=== PATIENT | female | born 1985 | race Two or more races ===

== ENCOUNTER 2016-03-18 18:43 | Inpatient (IN) | payer MEDICARE, MEDICAID ==
--- NOTE | 2016-03-18 18:54 | ED Physician Chart ---
Chief Complaint/HPI - Patient Information Allergies:: Allergies Allergy/AdvReac Type Severity Reaction Status Date / Time No Known Allergies Allergy Verified 03/18/16 18:50 Vitals:: Vital Signs - 8 hr 03/18/16 03/18/16 03/18/16 18:54 19:25 20:30 Temp 98.4 F 98.4 F HR 98 100 110 RR 25 18 18 BP 166/89 172/98 O2 Sat % 88 99 98 03/18/16 21:28 Temp 98.6 F HR 120 RR 18 BP 177/102 O2 Sat % 98 <Charles Thurston - Last Filed: 03/18/16 22:19> - Patient Information Date Seen:: 03/18/16 Time Seen:: 18:40 Chief Complaint:: COUGH AND RESPIRATORY DISTRESS THAT STARTED AT 8 AM History of Present Illness:: This 31 year old female who has Lupus and is on dialysis started with a non- productive cough this about 8 AM. She had subjective fever with no associated chills. This afternoon she became diaphoretic. Pt has tightness in the chest that does not radiate. She rates the severity of the tightness as a 5/10. It is made worse by deep inhalation. NO hemoptysis. <Moe Crenshaw - Last Filed: 03/21/16 14:42> Review of Systems - Review of Systems General/Constitutional: Fever, No chills, Diaphoresis, Loss of appetite Skin: No skin lesions, No rash Head: No headache, No light-headedness Eyes: No loss of vision, No diplopia ENT: No earache, No sore throat Neck: No neck pain, No thyromegaly, No stiffness Cardio Vascular: Chest pain, No palpitations, No edema Pulmonary: Cough, No sputum, Other (no hemoptysis) GI: No nausea, No vomiting, No diarrhea G/U: Other (makes no urine) Material Inspector: No abnormal vaginal bleed Musculoskeletal: No bone or joint pain, No back pain Endocrine: No polyuria, No polydipsia Psychiatric: Anxiety, No suicidal ideation Hematopoietic: No bruising, No lymphadenopathy Allergic/Immuno: No urticaria, No angioedema Neurological: No syncope, No focal symptoms, No weakness, No paresthesia, No seizure, No vertigo <Moe Crenshaw - Last Filed: 03/21/16 14:42> Past Medical History - Past Medical History Obtainable: Yes Psychiatricy History: Depression Medication: Reviewed <Charles Thurston - Last Filed: 03/18/16 22:19> - Past Medical History Past Medical History: Other (chroni renal failure on dialysis., lupus) Social History: Smoker, Alcohol (occational alcohol), No Drug Use Surgical History: other (bilateral hip replacements) <Moe Crenshaw - Last Filed: 03/21/16 14:42> Family Medical History - Family Member Father Living Status: Still Living Hx Family Diabetes: Yes <Moe Crenshaw - Last Filed: 03/21/16 14:42> Physical Exam - Physical Examination Respiratory: No Wheeze/Rhonchi/Rales (BILATERAL RHONCHI AND RALES AT THE BASES) <Charles Thurston - Last Filed: 03/18/16 22:19> - Physical Examination General/Constitutional: Awake, Well-developed, well-nourished, Alert Other Gen/Cons comments:: moderate distress, respiratory Head: Atraumatic Eyes: Lids, conjuctiva normal, PERRL, EOMI Skin: Nl inspection, No rash, No skin lesions, No ecchymosis ENMT: External ears, nose nl, TM canals nl, Nasal exam nl, Lips, teeth, gums nl , Oropharynx nl, Tonsils nl Neck: Nontender, Full ROM w/o pain, No JVD, No nuchal rigidity, No bruit, No mass, No stridor Respiratory: Nl effort/Exclusion, Clear to Auscultation Other Respiratory comments:: occational wheezes. NO rales or ronchi. Cardio Vascular: No murmur, gallop, rubs, NL S1 S2, Carotid/Femoral/Distal pulses equal bilaterally Other Cardio Vascular comments:: mild tachycardia in the 110 range GI: No tenderness/rebounding/guarding, No organomegaly, No hernia, Normal BS's, Nondistended, No mass/bruits, No McBurney tenderness : No CVA tenderness Extremities: normal strength in all extremities Neuro/Psych: Alert/oriented, Normal sensory exam, Normal motor strength, Judgement/insight normal, Mood normal, No focal deficits Misc: Normal back, No paraspinal tenderness <Moe Crenshaw - Last Filed: 03/21/16 14:42> Labs/Radiology/EKG Results - Lab Results Results: Laboratory Tests 03/18/16 03/18/16 03/18/16 20:01 20:01 20:01 WBC 5.6 RBC 3.65 L Hgb 11.1 L Hct 32.6 L MCV 89.2 MCH 30.5 MCHC Differential 34.2 RDW 14.0 Plt Count 210 MPV 9.4 Neutrophils % 68.2 Lymphocytes % 20.7 Monocytes % 9.2 Eosinophils % 1.6 Basophils % 0.3 D-Dimer Sodium 137 Potassium 3.7 Chloride 98 Carbon Dioxide 28.0 Anion Gap 14.7 BUN 32 H Creatinine 7.7 H* Est GFR ( Amer) 7.9 Est GFR (Non-Af Amer) 6.5 BUN/Creatinine Ratio 4.2 Glucose 99 Whole Bld Lactic Acid 1.69 Calcium 10.5 H Total Bilirubin 0.5 AST 13 ALT 10 Alkaline Phosphatase 70 Troponin I B-Natriuretic Peptide Total Protein 7.5 Albumin 3.8 Globulin 3.7 Albumin/Globulin Ratio 1.0 03/18/16 03/18/16 20:01 20:01 WBC RBC Hgb Hct MCV MCH MCHC Differential RDW Plt Count MPV Neutrophils % Lymphocytes % Monocytes % Eosinophils % Basophils % D-Dimer 787 H Sodium Potassium Chloride Carbon Dioxide Anion Gap BUN Creatinine Est GFR ( Amer) Est GFR (Non-Af Amer) BUN/Creatinine Ratio Glucose Whole Bld Lactic Acid Calcium Total Bilirubin AST ALT Alkaline Phosphatase Troponin I 0.03 B-Natriuretic Peptide 1700.0 H Total Protein Albumin Globulin Albumin/Globulin Ratio - Radiology Results Results: CHEST X-RAY = BILATERAL EDEMA NOTED BUT NO EFFUSION <Charles Thurston - Last Filed: 03/18/16 22:19> - Lab Results Results: CXR: NO CARDIOMEGALY. NO PNEUMOTHORAX. NO AREAS OF PULMONARY CONSOLIDATION. NO CHF. <Moe Crenshaw - Last Filed: 03/21/16 14:42> Assessment - Assessment General Assessment: passed on to DR. THURSTON at end of my shift for evaluation of labs and disposition <Moe Crenshaw - Last Filed: 03/21/16 14:42> ED Septic Shock - . Is Septic Shock (SBP<90, OR Lactate>4 mmol\L) present?: No - <6hrs of presentation: Vital Signs: Vital Signs - 8 hr 03/18/16 03/18/16 03/18/16 18:54 19:25 20:30 Temp 98.4 F 98.4 F HR 98 100 110 RR 25 18 18 BP 166/89 172/98 O2 Sat % 88 99 98 03/18/16 21:28 Temp 98.6 F HR 120 RR 18 BP 177/102 O2 Sat % 98 <Charles Thurston - Last Filed: 03/18/16 22:19> - . Is Septic Shock (SBP<90, OR Lactate>4 mmol\L) present?: No <Moe Crenshaw - Last Filed: 03/21/16 14:42> Reassessment (Disposition) - Reassessment Reassessment:: THE PATIENT WAS GIVEN ROCEPHIN AND SOLUMEDROL WITH SOME IMPROVEMENT. HOWEVER SHE COULD NOT MAINTAIN HER OXYGEN WITHOUT O2 NASAL CANULA AT 2 LITER PER MINUTES. Reassessment Condition:: Improved - Diagnosis Diagnosis:: HYPOXEMIA ACUTE BRONCHITIS LUPUS ESRD - Patient Disposition Discharge/Transfer:: Acute Care w/in this hosp Condition at Disposition:: Improved <Charles Thurston - Last Filed: 03/18/16 22:19> ED Discharge Plan <Charles Thurston - Last Filed: 03/18/16 22:19> <oMe Crenshaw - Last Filed: 03/21/16 14:42> - Patient Disposition Admit/Discharge/Transfer: Acute Care w/in this hosp
[2016-03-18] MEDS ORDERED: Albuterol/Ipratropium Neb 3 ML AERS HHN ONE ×2 (19:07→19:21)
[2016-03-18 20:23] LABS: % BASOPHILS 0.3 % (0.0-2.0); % EOSINOPHILS 1.6 % (0.0-5.0); % LYMPHOCYTES 20.7 % (20.0-50.0); % MONOCYTES 9.2 % (2.0-10.0); % NEUTROPHILS 68.2 % (40.0-80.0); HEMATOCRIT 32.6 % (35.0-45.0); HEMOGLOBIN 11.1 gm/dL (11.7-15.5); MEAN CELL VOLUME 89.2 fl (81-100); MEAN CORPUSCULAR HEMOGLOBIN 30.5 pg (27.0-31.0); MEAN CORPUSCULAR HGB CONC 34.2 pg (28.0-36.0); MEAN PLATELET VOLUME 9.4 fl; NEUTROPHILE ABSOLUTE 3.8 Th/cmm (1.8-8.0); PLATELET COUNT 210 Th/cmm (150-400); RED BLOOD COUNT 3.65 Mil/cmm (3.80-5.10); WHITE BLOOD COUNT 5.6 Th/cmm (4.8-10.8)
[2016-03-18 20:36] LABS: ANION GAP 14.7 (7.0-16.0); BILIRUBIN,TOTAL 0.5 mg/dL (0.3-1.0); BUN/CREATININE RATIO 4.2; CALCIUM SERUM 10.5 mg/dL (8.6-10.3); POTASSIUM SERUM 3.7 mEq/L (3.5-5.1)
[2016-03-18 20:43] LABS: CREATININE - SERUM 7.7 mg/dL (0.6-1.2)
--- NOTE | 2016-03-19 04:08 | Admit Criteria Form ---
Admit Criteria Forms - Admit Criteria Diagnosis: PULMONARY DISEASE GRG Clinical Indications for Admission to Inpatient Care ( Place 'X' for any and all applicable criteria): Hospital admission is needed for appropriate care of the patient because of ANY ONE of the following(1): [ ]I. Impending or actual respiratory arrest ( Use Respiratory Failure Criteria for severe respiratory disease and long-term mechanical ventilation patients) (4) [ ]II. Severe airflow or ventilation abnormalities (not responsive to emergency and observation care treatment as appropriate) as indicated by ANY ONE of the following(5)(6)(7)(8) : [ ]a) PCO2 > 42 mm Hg (5.6 kPa) and pH < 7.35 (new) [ ]b) Documented PCO2 increase > 5 mm Hg (0.7 kPa) from disease baseline [ ]c) Airflow measurements[A] < 60% of previous best or predicted ( e.g., PEF <300 L/minute) despite intensive emergent treatment[B] [ ]d) Required respiratory treatments that are performable only in acute inpatient setting [ X]III. Severe respiratory findings (not responsive to emergency and observation care treatment as appropriate) including ANY ONE of the following(5)(8)(9): [X ]a) Respiratory distress as indicated by ALL of the following(5)(10) : [X]i) Patient with ANY ONE of the following: [X ]1) Dyspnea (difficulty breathing) [ ]2) Abnormal breathing pattern (eg, chest retractions) [ ]3) Tachypnea [ ]4) Other evidence of difficulty breathing [X ]ii) Evidence of respiratory compromise indicated by ANY ONE of the following: [X ]1) Hypoxemia [ ]2) Altered mental status [ ]3) Other evidence of respiratory compromise (eg, pulmonary edema on chest x-ray) [ ]b) Stridor [ ]c) Gross hemoptysis(11) [ ]d) Acute cyanosis [ ]IV. High-risk pulmonary infection as indicated by ANY ONE of the following( 19)(20)(21)(22): [ ]a) Temperature less than 95 degrees F(35 degrees C) or greater than 103.1 degrees F(39.5 degrees C) [ ]b) Hemodynamic instability that remains after emergency or observation level care (as appropriate) [ ]c) Immunocompromised patient (eg, AIDS, post transplant, neutropenic) [ ]d) History of severe COPD [ ]e) History of severely symptomatic congestive heart failure [ ]f) Other high-risk comorbidity (eg, poorly controlled diabetes, cirrhosis, chronic renal insufficiency) [ ]g) Hypoxemia (new) [ ]h) Outpatient, observation, or recovery facility therapy has failed, is not appropriate, or is not feasible [ ]V. Severe atelectasis or lung collapse(15)(16) [ ]. Tuberculosis requiring inpatient treatment as indicated by ANY ONE of the following(17)(18): [ ]a) New positive acid-fast bacilli sputum smear [ ]b) Positive acid-fast bacilli smear (under current treatment), with ANY ONE of the following: [ ]i) Unexposed household contacts [ ]ii) Infants or immunosuppressed household contacts [ ]iii) Patient unable or unwilling to avoid exposing others [ ]iv) Severe immunocompromised patient (eg, AIDS, post transplant, neutropenic) [ ]VII. Empyema or lung abscess(13)(14) [ ]VIII. Severe pulmonary arterial hypertension or pulmonary vascular disease requiring inpatient care indicated by ANY ONE of the following(24)(25): [ ]a) Initiation or change of vasodilators (IV, subcutaneous, or inhaled) or other vasoactive medications needed [ ]b) IV anticoagulation needed (eg, immediate anticoagulation necessary, alternatives not appropriate) [ ]c) Arterial or pulmonary artery catheter monitoring needed due to infusion or other treatment [ ]IX. Chronic lung disease with severe deterioration (not responsive to emergency and observation care treatment as appropriate) as indicated by ANY ONE of the following (6)(12): [ ]a) SaO2 5% below baseline in patient with chronic hypoxemia [ ]b) New requirement for supplemental oxygen to keep SaO2 at baseline or acceptable level [ ]c) Required supplemental oxygen performable only in acute inpatient setting [ ]d) Severe airflow or ventilation abnormalities [ ]e) Rapid rate of exacerbation onset [ ]f) Previously mobile patient unable to walk between rooms [ ]g) Inability to eat or sleep due to dyspnea [ ]h) Altered mental status [ ]X. Cystic fibrosis with severe deterioration as indicated by ANY ONE of the following(26)(27): [ ]a) Severe exacerbation that does not respond to intensified home therapy [ ]b) Pneumonia [ ]c) Hemoptysis [ ]d) Atelectasis [ ]e) Pneumothorax [ ]f) Respiratory failure [ ]g) Severe exacerbation with patient unable to perform prescribed treatments at home [ ]XI. Severe right heart failure as indicated by ANY ONE of the following(24) (25): [ ]a) Increasing organ failure (eg, liver congestion with significant and worsening or new elevation of transaminases) [ ]b) Anasarca [ ]c) Angina that requires inpatient care (eg, not treatable in emergency or observation level of care) [ ]d) Respiratory distress [ ]e) Syncope [ ]f) SBP < 90 mm Hg (new) [ ]XII. Injury requiring inpatient care (medical) as indicated by ANY ONE of the following(28): [ ]a) Significant inhalation injury (eg, smoke inhalation, other toxic inhalation) (29)(30)(31) [ ]b) Airway obstruction that remains or is unstable after emergency or observation level care(32) [ ]c) Severe pain requiring acute inpatient management [ ]d) Lung contusion [ ]e) Bronchial tree injury [ ]f) Air or fat emboli(33) [ ]g) Other injury not treatable in emergency or observation level care (eg, hemothorax) (34) [ ]XIII. Pulmonary hemorrhage or significant hemoptysis(11)(35)(36) [ ]XIV. Inpatient palliative care needed[C](37)(38)(39)(40) [ ]XV. Complications of lung transplant (eg, rejection, failure, respiratory infection) (23) [ ]XVI. Pulmonary Disease and ANY ONE of the following: [ ]a) General Admission Criteria [ ]b) Pediatric General Admission Criteria The original [facility] content created by [facility] has been revised. The portions of the content which have been revised are identified through the use of italic text or in bold, and [facility] has neither reviewed nor approved the modified material. All other unmodified content is copyright [facility]. Please see references footnoted in the original [facility] edition 2016 Admit Criteria Met?: Yes
--- NOTE | 2016-03-19 07:35 | Consultation ---
Consult Note - Consult Note Service Date: 03/19/16 Referring Physician: Mine Kelley Consult Note: PHYSICIAN Consultation Note: Date of Admission: 03/18/16 Purpose of Consultation: Bronchitis, pneumonia. Chief Complaint: cough and shortness of breath. History of Present Illness: Patient LUCINA MONTANEZ was admitted to [facility] Telemetry with HYPOXEMIA,ACUTE BRONCHITIS,LUPUS,ESRD. 31 Y F with PMH of lupus, CKD5 on HD by av fistula in left arm developed cough and shortness of breath. She complained of subjective fevers. On initial evaluation, her temperature was 98.4 degree F and WBC Count was 5600. She was hypoxia and required supplemental oxygen. She was started on ceftriaxone and she felt better. Her CXR showed b/l edema. ID consult was called for further antibiotic management. Allergies Allergy/AdvReac Type Severity Reaction Status Date / Time No Known Allergies Allergy Verified 03/18/16 18:50 Vital Signs Temp 98.4 F 03/19/16 06:00 Pulse 110 03/19/16 06:00 Resp 18 03/19/16 06:00 BP 150/92 03/19/16 06:00 Pulse Ox 96 03/19/16 06:00 Home Medication Medication Instructions Recorded Type Calcium Acetate [Phoslo] 667 mg PO DAILY 03/18/16 History Clonazepam 0.5 mg PO TID PRN 03/18/16 History Tramadol HCl [Ultram] 50 mg PO PRN PRN 03/18/16 History Current Medications Generic Name Dose Route Start Last Admin Trade Name Freq PRN Reason Stop Dose Admin Calcium Acetate 667 mg 03/19/16 09:00 Phoslo PO 05/18/16 08:59 DAILY TANK Clonazepam 0.25 mg 03/19/16 01:21 Klonopin PO 05/18/16 08:59 TID PRN Agitation Protocol Ceftriaxone Sodium 1 gm/ 50 mls @ 100 mls/hr 03/19/16 21:00 Sodium Chloride IV 05/18/16 20:59 Q24HR TANK Pneumococcal Polyvalent Vaccine 0.5 ml 03/19/16 09:00 Pneumovax IM 03/19/16 09:01 .ONCE ONE Tramadol HCl 50 mg 03/19/16 00:23 Ultram PO 05/18/16 00:22 PRN PRN PAIN Review of Systems: A 12 point ROS was reviewed with the pertinent positive and negatives noted in the HPI. Past Medical History Hx Renal Disease Yes: ON HEMODIALYSIS Other Emotional/Behavior HAS HX OF BIPOLAR DISORDER Disorder Social History Smoking Status Smoker, status unknown Family Medical History Nonsignificant. Physical Exam: General: No Acute Distress HEENT: EOMI Bilaterally, PERRLA Bilaterally, Head is normocephalic, atraumatic on inspection. Neck: Supple, no JVD, no use of accessory neck muscle. Cardio: +S1/S2 Auscultated, RRR, no murmurs/rubs/gallops noted Respiratory: Clear to Auscultate Bilaterally Abdominal: Soft, Nondistended, Nontender to palpation x 4 quadrants Extremities: No Edema noted in the lower extremities Neurological: Alert and Oriented x3, Cranial Nerves II-XII intact bilaterally, Gait Steady, No Focal Deficits noted. Assessment/Plan: 1. Dyspnea with cough, improving on current treatment. Bronchitis. 2. CHF. 3. CKD 5 on HD. 4. SLE. Recommendations: Will continue rocephin, follow up CXR report. Follow up blood culture report. Signed, Alonso Thomas M.D. 03/19/[id number]
[2016-03-19 07:45] LABS: % BASOPHILS 0.2 % (0.0-2.0); % EOSINOPHILS 0.3 % (0.0-5.0); % LYMPHOCYTES 14.1 % (20.0-50.0); % MONOCYTES 1.7 % (2.0-10.0); % NEUTROPHILS 83.7 % (40.0-80.0); HEMOGLOBIN 9.5 gm/dL (11.7-15.5); MEAN CELL VOLUME 89.8 fl (81-100); MEAN CORPUSCULAR HEMOGLOBIN 30.1 pg (27.0-31.0); MEAN CORPUSCULAR HGB CONC 33.5 pg (28.0-36.0); MEAN PLATELET VOLUME 9.5 fl; NEUTROPHILE ABSOLUTE 2.7 Th/cmm (1.8-8.0); PLATELET COUNT 199 Th/cmm (150-400); RED BLOOD COUNT 3.17 Mil/cmm (3.80-5.10); RED CELL DISTRIBUTION WIDTH 13.6 % (11.5-20.0)
[2016-03-19 07:59] LABS: ANION GAP 13.3 (7.0-16.0); BUN/CREATININE RATIO 4.6; CARBON DIOXIDE 27.6 mEq/L (21.0-31.0); POTASSIUM SERUM 4.9 mEq/L (3.5-5.1)
[2016-03-19 08:08] LABS: HEMATOCRIT 28.4 % (35.0-45.0); WHITE BLOOD COUNT 3.3 Th/cmm (4.8-10.8)
[2016-03-19 08:45] LABS: CREATININE - SERUM 8.9 mg/dL (0.6-1.2)
[2016-03-19] MEDS ORDERED: Pneumococcal Vaccine 0.5 mL Vial IM ONE (09:00)
--- NOTE | 2016-03-19 10:40 | Diagnostic Imaging Report ---
Portable chest x-ray History: Shortness of breath Allowing for portable technique the heart size is normal. No focal pulmonary parenchymal processes. No hilar or mediastinal abnormalities. Impression: No acute abnormalities.
[2016-03-19] MEDS ORDERED: Epoetin Alfa 20000 Units/mL Vial SUBQ SCH (12:45)
[2016-03-19] MEDS: cefTRIAXone 1 GM in Sodium Chloride 0.9% 100 ML IV SCH (22:30)
--- NOTE | 2016-03-20 00:32 | History & Physical ---
HISTORY OF PRESENT ILLNESS: This is a 31-year-old female who came with acute shortness of breath and cough. The patient is a 31-year-old female patient known to have history of lupus, history of ESRD, on hemodialysis. The patient had fistula on her left arm, developed acute shortness of breath, was complaining of fever, but her temperature when taken was 98. The patient's was white count was ____ 5600. The patient was hypoxic in the Emergency Room, was given supplemental oxygen. Chest x-ray showed bilateral edema. The patient also had congestive heart failure pattern. The patient was admitted. ALLERGIES: No known allergies. MEDICATIONS: Included calcium acetate, clonazepam or Klonopin, and tramadol. REVIEW OF SYSTEMS: Essentially, as noted above shortness of breath. Everything else was negative. The patient is known to have history of ESRD, on dialysis. The patient is known to have history of CHF and history of bipolar disorder. SOCIAL HISTORY: He is a smoker, current status not known. PHYSICAL EXAMINATION: GENERAL: The patient is alert and oriented, not in acute distress. VITAL SIGNS: Stable. HEAD: Normal. ENT: Normal. NECK: Supple, nontender. LUNGS: Clear. CARDIOVASCULAR SYSTEM: S1 and S2. ABDOMEN: Soft. Bowel sounds are heard. CENTRAL NERVOUS SYSTEM: Grossly normal. Left arm fistula was noted. DIAGNOSES: 1. Dyspnea with cough and bilateral bronchitis. 2. Congestive heart failure. 3. End-stage renal disease, on hemodialysis. 4. History of systemic lupus erythematosus. PLAN: The patient is only given antibiotics and we will have Dr. Thomas follow the patient and also have Dr. Boyer do the dialysis and I will follow the patient. JOB# [id number]
--- NOTE | 2016-03-20 03:23 | Consultation ---
ATTENDING PHYSICIAN: Demetrius Kelley M.D. REASON FOR CONSULTATION: Electrolyte imbalance and fluid management. HISTORY OF PRESENT ILLNESS: This is a 31-year-old female with past medical history of end-stage renal disease on hemodialysis, who came in because of persistently cough. A few hours prior to admission, the patient suddenly developed cough. She described this as dry without any production of phlegm. However, she felt like there is phlegm stuck in her throat. She coughed persistently, which eventually affected her breathing. She then proceeded to the Emergency Room. Chest x-ray revealed no acute disease. White count was 5.6. She had no chest pain. She did admit to having some form of low-grade fever. She denied any history of asthma, postnasal drip and GERD. PAST MEDICAL HISTORY: 1. End-stage renal disease, on hemodialysis. 2. SLE, which was diagnosed when she was a teenager and has been stable for many years. 3. Anemia of chronic kidney disease. PAST SURGICAL HISTORY: Status post placement of left AV fistula. CURRENT MEDICATIONS: She is currently on albuterol/ipratropium, PhosLo, Rocephin, clonazepam, methylprednisolone, tramadol. ALLERGIES: No known drug allergies. SOCIAL HISTORY: Denied any history of alcohol or tobacco use. She is currently on disability. FAMILY HISTORY: Noncontributory to present illness. REVIEW OF SYSTEMS: CONSTITUTIONAL: Denied any weakness. Appetite had been good. She did have some low-grade fever. HEENT: No mention of headaches, no dizziness. Vision and hearing acuity remains within acceptable limits. CARDIORESPIRATORY: No history of chest pain, palpitations, diaphoresis. However, she does have dry cough associated with some shortness of breath. GASTROINTESTINAL: No nausea and vomiting, abdominal pain or cramping, hematemesis, melena, hematochezia. No diarrhea. ENDOCRINE: No history of diabetes or thyroid abnormalities, no dyslipidemia. MUSCULOSKELETAL: She does have a history of lupus, however, no arthralgias at the present time. HEMATOLOGIC: She has anemia of chronic kidney disease. GENITOURINARY: History of kidney failure, on hemodialysis, due to her lupus. Still urinates, but very rarely. No dysuria, no hematuria. NEUROPSYCH: No syncopal episode nor seizure activity. No neuropathy. PHYSICAL EXAMINATION: GENERAL: The patient is alert, verbal, still has problem with her cough. VITAL SIGNS: Her blood pressure is 157/104, pulse 107, temperature 98.5 degrees. SKIN: Good turgor, warm, no rash, no jaundice appreciated. HEENT: Head normocephalic, atraumatic. Eyes, extraocular muscles intact. Pupils equal, round, reactive to light and accommodation. Anicteric sclerae. Pale conjunctivae. Nose, midline nasal septum. Mouth, moist mucosa with adequate dentition. NECK: Supple. No adenopathy. No thyromegaly. No bruits. Trachea palpated in the midline. CHEST AND CVS: S1, S2. No rub, murmur nor gallop appreciated. Point of maximal impulse fifth intercostal space, left midclavicular line. No abdominal or femoral bruits appreciated. LUNGS: Equal expansion. No use of accessory muscles. No supraclavicular retractions. Decreased breath sounds, a few rhonchi, but no rales nor wheezes appreciated. BREASTS: Symmetrical, without any discharge. ABDOMEN: Flat, soft. Positive for bowel sounds. No bruits either diastolic or systolic. RECTAL: The patient refused. GENITOURINARY: Normal appearing female genitalia. MUSCULOSKELETAL: No effusions present in her joints, with adequate range of motion. EXTREMITIES: No evidence of edema, cyanosis nor clubbing with palpable femoral, popliteal and dorsalis pedis pulses. NEUROLOGIC: The patient is alert, verbal. Motor is 5/5. Cranial nerves 2-12 intact. Sensory intact. LABORATORY DATA: Sodium 134, potassium 4.9, chloride 98, bicarbonate 27, BUN 41, creatinine 8.9, glucose 154, calcium 10, albumin 3.8. White count 3.3, hemoglobin 9.5, hematocrit 28.4, polys 83%, platelets 199. BNP 1700. IMPRESSION: 1. End-stage renal disease, on hemodialysis. 2. Dry cough, possibly due to acute bronchitis, however, also need to consider bronchospasm as well as bronchiectasis. 3. Systemic lupus erythematosus, which has been stable. 4. Anemia of chronic kidney disease. 5. Moderate malnutrition. 6. Elevated blood pressure. 7. Elevated BNP due to kidney failure. PLAN: 1. Hemodialysis. 2. Continue with steroids. 3. Consider CT scan of the chest. 4. Continue antibiotics. 5. Start the patient on Lopressor because of tachycardia and hypertension. Thank you, Dr. Kelley for this consult. We will follow the patient closely with you. JOB# [id number]
[2016-03-20 15:24] VITALS: BP 138/84
--- NOTE | 2016-03-20 18:25 | General Progress Note ---
Subjective - Review of Systems Service Date: 03/20/16 Objective - Results Result Diagrams: 03/19/16 07:19 03/19/16 07:19 Recent Labs: Laboratory Last Values WBC 3.3 Th/cmm (4.8-10.8) L D 03/19/16 07:19 RBC 3.17 Mil/cmm (3.80-5.10) L 03/19/16 07:19 Hgb 9.5 gm/dL (11.7-15.5) L 03/19/16 07:19 Hct 28.4 % (35.0-45.0) L D 03/19/16 07:19 MCV 89.8 fl (81-100) 03/19/16 07:19 MCH 30.1 pg (27.0-31.0) 03/19/16 07:19 MCHC Differential 33.5 pg (28.0-36.0) 03/19/16 07:19 RDW 13.6 % (11.5-20.0) 03/19/16 07:19 Plt Count 199 Th/cmm (150-400) 03/19/16 07:19 MPV 9.5 fl 03/19/16 07:19 Neutrophils % 83.7 % (40.0-80.0) H 03/19/16 07:19 Lymphocytes % 14.1 % (20.0-50.0) L 03/19/16 07:19 Monocytes % 1.7 % (2.0-10.0) L 03/19/16 07:19 Eosinophils % 0.3 % (0.0-5.0) 03/19/16 07:19 Basophils % 0.2 % (0.0-2.0) 03/19/16 07:19 D-Dimer 787 ng/mL (100-400) H 03/18/16 20:01 Sodium 134 mEq/L (136-145) L 03/19/16 07:19 Potassium 4.9 mEq/L (3.5-5.1) 03/19/16 07:19 Chloride 98 mEq/L (98-107) 03/19/16 07:19 Carbon Dioxide 27.6 mEq/L (21.0-31.0) 03/19/16 07:19 Anion Gap 13.3 (7.0-16.0) 03/19/16 07:19 BUN 41 mg/dL (7-25) H 03/19/16 07:19 Creatinine 8.9 mg/dL (0.6-1.2) H* 03/19/16 07:19 Est GFR ( Amer) 6.7 ml/min (>90) 03/19/16 07:19 Est GFR (Non-Af Amer) 5.5 ml/min 03/19/16 07:19 BUN/Creatinine Ratio 4.6 03/19/16 07:19 Glucose 154 mg/dL (70-105) H 03/19/16 07:19 Whole Bld Lactic Acid 1.69 mmol/L (0.60-2.00) 03/18/16 20:01 Calcium 10.0 mg/dL (8.6-10.3) 03/19/16 07:19 Total Bilirubin 0.5 mg/dL (0.3-1.0) 03/18/16 20:01 AST 13 U/L (13-39) 03/18/16 20:01 ALT 10 U/L (7-52) 03/18/16 20:01 Alkaline Phosphatase 70 U/L (34-104) 03/18/16 20:01 Troponin I 0.03 ng/mL (0.01-0.05) 03/18/16 20:01 B-Natriuretic Peptide 1700.0 pg/mL (5.0-100.0) H 03/18/16 20:01 Total Protein 7.5 gm/dL (6.0-8.3) 03/18/16 20:01 Albumin 3.8 gm/dL (3.7-5.3) 03/18/16 20:01 Globulin 3.7 gm/dL 03/18/16 20:01 Albumin/Globulin Ratio 1.0 (1.0-1.8) 03/18/16 20:01 - Physical Exam Vitals and I&O: Vital Signs Temp 98.2 F 03/20/16 15:59 Pulse 94 03/20/16 15:59 Resp 18 03/20/16 16:00 BP 147/95 03/20/16 15:59 Pulse Ox 97 03/20/16 15:59 Intake & Output 02/04/17 02/05/17 02/05/17 18:59 06:59 18:59 Intake Total 800 750 800 Balance 800 750 800 Intake: Oral 800 750 800 Other: # Voids 3 3 0 # Bowel Movements 1 1 1 Stool Characteristics Soft Soft Brown Brown Active Medications: Current Medications Calcium Acetate (Phoslo) 667 mg PO DAILY [facility] Stop: 05/18/16 08:59 Last Admin: 03/20/16 08:27 Dose: 667 mg Clonazepam (Klonopin) 0.25 mg PO TID PRN; Protocol PRN Reason: Agitation Stop: 05/18/16 08:59 Last Admin: 03/20/16 04:13 Dose: 0.25 mg Epoetin Gabe (Epogen) 10,000 units SUBQ TuThSa [facility] Stop: 05/18/16 12:44 Last Admin: 03/19/16 16:54 Dose: 10,000 units Ceftriaxone Sodium 1 gm/ (Sodium Chloride) 100 mls @ 100 mls/hr IV Q24HR [facility] Stop: 05/18/16 20:59 Last Admin: 03/19/16 22:30 Dose: 100 mls/hr Metoprolol Tartrate (Lopressor) 25 mg PO DAILY [facility] Stop: 05/18/16 12:29 Last Admin: 03/20/16 08:27 Dose: 25 mg Tramadol HCl (Ultram) 50 mg PO PRN PRN PRN Reason: PAIN Stop: 05/18/16 00:22 Assessment/Plan - Problem List Patient Problems: All Active Problems SEVERE DYSPNEA WITH COUGH (Acute)
[2016-03-20] MEDS: cefTRIAXone 1 GM in Sodium Chloride 0.9% 100 ML IV SCH (20:19)
[2016-03-21] MEDS ORDERED: LURASIDONE HCL 20 MG PO SCH (09:00)
--- NOTE | 2016-03-21 09:02 | General Progress Note ---
Objective - Results Result Diagrams: 03/19/16 07:19 03/19/16 07:19 Recent Labs: Laboratory Last Values WBC 3.3 Th/cmm (4.8-10.8) L D 03/19/16 07:19 RBC 3.17 Mil/cmm (3.80-5.10) L 03/19/16 07:19 Hgb 9.5 gm/dL (11.7-15.5) L 03/19/16 07:19 Hct 28.4 % (35.0-45.0) L D 03/19/16 07:19 MCV 89.8 fl (81-100) 03/19/16 07:19 MCH 30.1 pg (27.0-31.0) 03/19/16 07:19 MCHC Differential 33.5 pg (28.0-36.0) 03/19/16 07:19 RDW 13.6 % (11.5-20.0) 03/19/16 07:19 Plt Count 199 Th/cmm (150-400) 03/19/16 07:19 MPV 9.5 fl 03/19/16 07:19 Neutrophils % 83.7 % (40.0-80.0) H 03/19/16 07:19 Lymphocytes % 14.1 % (20.0-50.0) L 03/19/16 07:19 Monocytes % 1.7 % (2.0-10.0) L 03/19/16 07:19 Eosinophils % 0.3 % (0.0-5.0) 03/19/16 07:19 Basophils % 0.2 % (0.0-2.0) 03/19/16 07:19 D-Dimer 787 ng/mL (100-400) H 03/18/16 20:01 Sodium 134 mEq/L (136-145) L 03/19/16 07:19 Potassium 4.9 mEq/L (3.5-5.1) 03/19/16 07:19 Chloride 98 mEq/L (98-107) 03/19/16 07:19 Carbon Dioxide 27.6 mEq/L (21.0-31.0) 03/19/16 07:19 Anion Gap 13.3 (7.0-16.0) 03/19/16 07:19 BUN 41 mg/dL (7-25) H 03/19/16 07:19 Creatinine 8.9 mg/dL (0.6-1.2) H* 03/19/16 07:19 Est GFR ( Amer) 6.7 ml/min (>90) 03/19/16 07:19 Est GFR (Non-Af Amer) 5.5 ml/min 03/19/16 07:19 BUN/Creatinine Ratio 4.6 03/19/16 07:19 Glucose 154 mg/dL (70-105) H 03/19/16 07:19 Whole Bld Lactic Acid 1.69 mmol/L (0.60-2.00) 03/18/16 20:01 Calcium 10.0 mg/dL (8.6-10.3) 03/19/16 07:19 Total Bilirubin 0.5 mg/dL (0.3-1.0) 03/18/16 20:01 AST 13 U/L (13-39) 03/18/16 20:01 ALT 10 U/L (7-52) 03/18/16 20:01 Alkaline Phosphatase 70 U/L (34-104) 03/18/16 20:01 Troponin I 0.03 ng/mL (0.01-0.05) 03/18/16 20:01 B-Natriuretic Peptide 1700.0 pg/mL (5.0-100.0) H 03/18/16 20:01 Total Protein 7.5 gm/dL (6.0-8.3) 03/18/16 20:01 Albumin 3.8 gm/dL (3.7-5.3) 03/18/16 20:01 Globulin 3.7 gm/dL 03/18/16 20:01 Albumin/Globulin Ratio 1.0 (1.0-1.8) 03/18/16 20:01 - Physical Exam Vitals and I&O: Vital Signs Temp 98.7 F 03/21/16 04:00 Pulse 91 03/21/16 04:00 Resp 18 03/21/16 04:00 BP 155/94 03/21/16 04:00 Pulse Ox 100 03/21/16 04:00 Intake & Output 03/20/16 03/21/16 03/21/16 18:59 06:59 18:59 Intake Total 800 500 Balance 800 500 Intake: Intake, IV Amount 100 cefTRIAXone 1 gm In 100 Sodium Chloride 0.9% 100 ml @ 100 mls/hr IV Q24HR [facility] Rx#:[id number] Oral 800 400 Other: # Voids 0 1 # Bowel Movements 1 Stool Characteristics Soft Brown Active Medications: Current Medications Calcium Acetate (Phoslo) 667 mg PO DAILY [facility] Stop: 05/18/16 08:59 Last Admin: 03/20/16 08:27 Dose: 667 mg Clonazepam (Klonopin) 0.25 mg PO TID PRN; Protocol PRN Reason: Agitation Stop: 05/18/16 08:59 Last Admin: 03/20/16 04:13 Dose: 0.25 mg Divalproex Sodium (Depakote Dr) 500 mg PO BID [facility] PRN Reason: Protocol Stop: 05/20/16 08:59 Epoetin Gabe (Epogen) 10,000 units SUBQ TuTa [facility] Stop: 05/18/16 12:44 Last Admin: 03/19/16 16:54 Dose: 10,000 units Ceftriaxone Sodium 1 gm/ (Sodium Chloride) 100 mls @ 100 mls/hr IV Q24HR [facility] Stop: 05/18/16 20:59 Last Infusion: 03/20/16 21:19 Dose: Infused Metoprolol Tartrate (Lopressor) 25 mg PO DAILY [facility] Stop: 05/18/16 12:29 Last Admin: 03/20/16 08:27 Dose: 25 mg Miscellaneous (Lurasidone Hcl [Latuda]) 20 mg PO DAILY [facility] Stop: 05/20/16 08:59 Tramadol HCl (Ultram) 50 mg PO PRN PRN PRN Reason: PAIN Stop: 05/18/16 00:22 Assessment/Plan - Problem List Patient Problems: All Active Problems SEVERE DYSPNEA WITH COUGH (Acute)
[2016-03-21] MEDS ORDERED: LATUDA 20 MG PO SCH (13:00)
--- NOTE | 2016-03-21 14:03 | Infectious Disease Prog Note ---
Infectious Disease Subjective - Review of Systems Service Date: 03/21/16 Subjective: There is no fever. Infectious Disease Objective - Results Result Diagrams: 03/19/16 07:19 03/19/16 07:19 Recent Labs: Laboratory Last Values WBC 3.3 Th/cmm (4.8-10.8) L D 03/19/16 07:19 RBC 3.17 Mil/cmm (3.80-5.10) L 03/19/16 07:19 Hgb 9.5 gm/dL (11.7-15.5) L 03/19/16 07:19 Hct 28.4 % (35.0-45.0) L D 03/19/16 07:19 MCV 89.8 fl (81-100) 03/19/16 07:19 MCH 30.1 pg (27.0-31.0) 03/19/16 07:19 MCHC Differential 33.5 pg (28.0-36.0) 03/19/16 07:19 RDW 13.6 % (11.5-20.0) 03/19/16 07:19 Plt Count 199 Th/cmm (150-400) 03/19/16 07:19 MPV 9.5 fl 03/19/16 07:19 Neutrophils % 83.7 % (40.0-80.0) H 03/19/16 07:19 Lymphocytes % 14.1 % (20.0-50.0) L 03/19/16 07:19 Monocytes % 1.7 % (2.0-10.0) L 03/19/16 07:19 Eosinophils % 0.3 % (0.0-5.0) 03/19/16 07:19 Basophils % 0.2 % (0.0-2.0) 03/19/16 07:19 D-Dimer 787 ng/mL (100-400) H 03/18/16 20:01 Sodium 134 mEq/L (136-145) L 03/19/16 07:19 Potassium 4.9 mEq/L (3.5-5.1) 03/19/16 07:19 Chloride 98 mEq/L (98-107) 03/19/16 07:19 Carbon Dioxide 27.6 mEq/L (21.0-31.0) 03/19/16 07:19 Anion Gap 13.3 (7.0-16.0) 03/19/16 07:19 BUN 41 mg/dL (7-25) H 03/19/16 07:19 Creatinine 8.9 mg/dL (0.6-1.2) H* 03/19/16 07:19 Est GFR ( Amer) 6.7 ml/min (>90) 03/19/16 07:19 Est GFR (Non-Af Amer) 5.5 ml/min 03/19/16 07:19 BUN/Creatinine Ratio 4.6 03/19/16 07:19 Glucose 154 mg/dL (70-105) H 03/19/16 07:19 Whole Bld Lactic Acid 1.69 mmol/L (0.60-2.00) 03/18/16 20:01 Calcium 10.0 mg/dL (8.6-10.3) 03/19/16 07:19 Total Bilirubin 0.5 mg/dL (0.3-1.0) 03/18/16 20:01 AST 13 U/L (13-39) 03/18/16 20:01 ALT 10 U/L (7-52) 03/18/16 20:01 Alkaline Phosphatase 70 U/L (34-104) 03/18/16 20:01 Troponin I 0.03 ng/mL (0.01-0.05) 03/18/16 20:01 B-Natriuretic Peptide 1700.0 pg/mL (5.0-100.0) H 03/18/16 20:01 Total Protein 7.5 gm/dL (6.0-8.3) 03/18/16 20:01 Albumin 3.8 gm/dL (3.7-5.3) 03/18/16 20:01 Globulin 3.7 gm/dL 03/18/16 20:01 Albumin/Globulin Ratio 1.0 (1.0-1.8) 03/18/16 20:01 - Physical Exam Vitals and I&O: Vital Signs Temp 98.6 F 03/21/16 08:00 Pulse 93 03/21/16 10:11 Resp 18 03/21/16 08:00 BP 126/85 03/21/16 10:11 Pulse Ox 98 03/21/16 08:00 Intake & Output 03/20/16 03/21/1603/21/17 18:59 06:59 18:59 Intake Total 800 500 400 Balance 800 500 400 Intake: Intake, IV Amount 100 cefTRIAXone 1 gm In 100 Sodium Chloride 0.9% 100 ml @ 100 mls/hr IV Q24HR [facility] Rx#:[id number] Oral 800 400 400 Other: # Voids 0 1 # Bowel Movements 1 Stool Characteristics Soft Brown Active Medications: Current Medications Calcium Acetate (Phoslo) 667 mg PO DAILY [facility] Stop: 05/18/16 08:59 Last Admin: 03/21/16 10:11 Dose: 667 mg Clonazepam (Klonopin) 0.25 mg PO TID PRN; Protocol PRN Reason: Agitation Stop: 05/18/16 08:59 Last Admin: 03/20/16 04:13 Dose: 0.25 mg Divalproex Sodium (Depakote Dr) 500 mg PO BID [facility] PRN Reason: Protocol Stop: 05/20/16 08:59 Last Admin: 03/21/16 10:12 Dose: 500 mg Epoetin Gabe (Epogen) 10,000 units SUBQ TuTa [facility] Stop: 05/18/16 12:44 Last Admin: 03/19/16 16:54 Dose: 10,000 units Ceftriaxone Sodium 1 gm/ (Sodium Chloride) 100 mls @ 100 mls/hr IV Q24HR [facility] Stop: 05/18/16 20:59 Last Infusion: 03/20/16 21:19 Dose: Infused Metoprolol Tartrate (Lopressor) 25 mg PO DAILY [facility] Stop: 05/18/16 12:29 Last Admin: 03/21/16 10:11 Dose: 25 mg Patient Own Med- (Latuda 20mg Tablet) 1 PO DAILY [facility] Stop: 05/20/16 12:59 Last Admin: 03/21/16 13:11 Dose: 1 Tramadol HCl (Ultram) 50 mg PO PRN PRN PRN Reason: PAIN Stop: 05/18/16 00:22 General: no acute distress, well developed, well nourished HEENT: atraumatic, normocephalic, PERRLA Neck: supple, no thyromegaly Cardiovascular: S1S2, no regular Lungs: clear to auscultation bilaterally, clear to percussion Abdomen: soft, no tender, no distended Extremities: no cyanosis, no clubbing, no edema Neurological: awake, alert, oriented Skin: intact Infectious Disease Assmt/Plan - Problem List Patient Problems: All Active Problems SEVERE DYSPNEA WITH COUGH (Acute) - Assessment Assessment: 1. Bronchitis. 2. Lupus. 3. CKD 5 on HD. - Plan Plan: May change rocephin to keflex 250 mg po daily for 6 days.
--- NOTE | 2016-03-21 16:07 | Consultation ---
AGE: 31. SEX: Female. PHYSICIAN: Dr. Kelley. EXPELLER WORKER: Dr. Ingram. REASON FOR THE CONSULT: "I'm bipolar." HISTORY OF PRESENT ILLNESS: The patient is a 31-year-old female with history of bipolar disorder. The patient said that she moved recently to the [facility]. The patient has been anxious and has been depressed. The patient added that she has been taking Latuda and she has not been able to get that since she is here. She has been also having difficulty with her mood at times and has been having mood swings. PAST PSYCHIATRIC HISTORY: The patient has history of bipolar and has been taking Latuda. PAST MEDICAL HISTORY: The patient denies. SOCIAL HISTORY: The patient is single, never and has no children. The patient denies any alcohol or street drug use at this time. She moved recently to [facility]. MENTAL STATUS EXAM: The patient appears her stated age. Anxious. Cooperative. Mood not depressed nor elated. Thought processes are mainly goal directed. The patient denies auditory or visual hallucinations or delusions. The patient denies any thoughts of suicide or homicide. The patient is alert and oriented to time, place, person, and situation. Intact immediate, recent and remote memories. Fair insight. Fair judgment. ASSESSMENT: PRIMARY DIAGNOSIS: Bipolar disorder, mixed type. TREATMENT PLAN: We will restart the patient on Latuda. We will start individual as well as milieu psychotherapy. We will monitor psychotropic medications. Thanks to Dr. Kelley and will follow up with you. JOB# [id number]
[2016-03-22 12:21] LABS: HEP B CORE IGM Negative (Negative); HEP C ANTIBODY <0.1 s/co ratio (0.0-0.9)
--- NOTE | 2016-03-28 20:37 | Discharge Summary ---
HOSPITAL COURSE: The patient was admitted from home through the Emergency Room with chief complaint of shortness of breath. From ER, x-ray was done and found that the patient was negative for pneumonia; however, the patient has a pattern consistent with CHF. The patient was admitted to Med/Surg Floor with diagnosis of bronchitis, CHF and end-stage renal disease dependent on dialysis and also history of systemic lupus erythematosus. The patient was discharged back to home with instruction to follow up with her primary care provider. DISCHARGE DIAGNOSES: 1. Bronchitis. 2. Congestive heart failure. 3. End-stage renal disease with hemodialysis. 4. Systemic lupus erythematosus. JOB# [id number]
== END 2016-03-21 18:15 | disposition home or self-care (01) | DRG 682 ==
LOC: ER 18:43 → TELE 23:00
PROVIDERS: ADMIT Internal Medicine; ATTEND Internal Medicine
PROC: 5A1D00Z (ICD-10-PCS; principal; 2016-03-19)
DX: I12.0 Hypertensive chronic kidney disease with stage 5 chronic kidney disease or end stage renal disease (principal); N18.6 End stage renal disease; I50.9 Heart failure, unspecified; E44.0 Moderate protein-calorie malnutrition; M32.9 Systemic lupus erythematosus, unspecified; F31.89 Other bipolar disorder; J20.9 Acute bronchitis, unspecified; R09.02 Hypoxemia; D63.1 Anemia in chronic kidney disease; Z96.643 Presence of artificial hip joint, bilateral; Z83.3 Family history of diabetes mellitus; Z99.2 Dependence on renal dialysis; Z68.20 Body mass index [BMI] 20.0-20.9, adult
CPT/HCPCS: 36415-UA; 71010-TC; 80048-TC; 80053-TC; 80074-90; 83605; 83880-TC; 84484-TC; 85025-TC; 85379-TC; 90732; 90937; 93005; J0696; J0885; J2001; J2930; J7030; Z7610

== ENCOUNTER 2017-11-09 19:10 | Emergency (ER) | payer OTHER, MEDICAID ==
--- NOTE | 2017-11-09 19:28 | ED Physician Chart ---
ED Chief Complaint/HPI - Patient Information Date Seen:: 11/09/17 Time Seen:: 19:15 Chief Complaint:: vomiting and skin redness History of Present Illness:: Patient took one plaquinil for the first time last night and took another one this morning. She vomited and had mild erythema of the skin this morning. No throat swelling or difficulty breathing. Allergies:: Allergies Allergy/AdvReac Type Severity Reaction Status Date / Time No Known Allergies Allergy Verified 03/18/16 18:50 Historian:: Patient Review:: Nurse's Note Reviewed ED Review of Systems - Review of Systems General/Constitutional: No fever, No chills Skin: No skin lesions, Other (skin redness) Head: No headache Eyes: No loss of vision ENT: No earache Neck: No neck pain, No swelling Cardio Vascular: No chest pain Pulmonary: No SOB GI: Vomiting G/U: No dysuria Musculoskeletal: No bone or joint pain, No back pain, No muscle pain Endocrine: No polyuria, No polydipsia Psychiatric: No prior psych history ED Past Medical History - Past Medical History Past Medical History: Other (lupus; renal failure and on dialysis for 7 years Monday) Family History: HTN Social History: Non Smoker, No Alcohol Surgical History: other (bilateral hip replacements; dialysis shunt) Psychiatricy History: None Medication: Reviewed Family Medical History - Family Member Father History Unknown: Yes Living Status: Still Living Hx Family Diabetes: Yes ED Physical Exam - Physical Examination General/Constitutional: Awake, Well-developed, well-nourished, Alert, No distress, GCS 15, Non-toxic appearing, Ambulatory Head: Atraumatic Eyes: Lids, conjuctiva normal, PERRL, EOMI Skin: Well hydrated, No lymphadenopathy Other Skin comments:: Mild erythema of skin ENMT: External ears, nose nl, Nasal exam nl, Lips, teeth, gums nl, Oropharynx nl Other ENMT comments:: no throat swelling Neck: Nontender, Full ROM w/o pain, No JVD, No nuchal rigidity, No bruit, No mass, No stridor Respiratory: Nl effort/Exclusion, Clear to Auscultation, No Wheeze/Rhonchi/Rales Cardio Vascular: RRR, No murmur, gallop, rubs, NL S1 S2 GI: No tenderness/rebounding/guarding, No organomegaly, No hernia, Normal BS's, Nondistended, No mass/bruits, No McBurney tenderness : No CVA tenderness Extremities: No tenderness or effusion, Full ROM, normal strength in all extremities, No edema, Normal digits & nails Neuro/Psych: Alert/oriented, DTR's symmetric, Normal sensory exam, Normal motor strength, Judgement/insight normal, Mood normal, Normal gait, No focal deficits Misc: Normal back, No paraspinal tenderness ED Labs/Radiology/EKG Results - Lab Results Results: Laboratory Results - last 24 hr 11/09/17 11/09/17 19:50 19:50 WBC 8.9 RBC 3.44 L Hgb 10.8 L Hct 31.9 L MCV 92.7 MCH 31.5 H MCHC Differential 33.9 RDW 15.8 Plt Count 445 H MPV 7.2 Neutrophils % 71.3 Lymphocytes % 21.7 Monocytes % 6.0 Eosinophils % 0.5 Basophils % 0.5 Sodium 130 L Potassium 4.9 Chloride 88 L Carbon Dioxide 27.4 Anion Gap 19.5 H BUN 82 H* Creatinine 6.5 H* Est GFR ( Amer) 9.5 Est GFR (Non-Af Amer) 7.9 BUN/Creatinine Ratio 12.6 Glucose 105 Calcium 10.3 ED Reassessment (Disposition) - Reassessment Reassessment:: At 2020 patient states her pruritus is starting to subside. Reassessment Condition:: Improved - Diagnosis Diagnosis:: Allergic reaction; renal failure on dialysis - Aftercare/Follow up Instructions Aftercare/Follow-Up Instructions:: Refer to Discharge Instructions Medication Prescribed:: Atarax 10 mg #12 to take one 4 times a day as necessary for redness or itching - Patient Disposition Discharge/Transfer:: Home Condition at Disposition:: Stable, Improved
[2017-11-09 20:10] LABS: ANION GAP 19.5 (7.0-16.0); CALCIUM SERUM 10.3 mg/dL (8.6-10.3); CARBON DIOXIDE 27.4 mEq/L (21.0-31.0); GFR AFRICAN-AMERICAN 9.5 ml/min (>90); GFR NON AFRICAN-AMERICAN 7.9 ml/min; POTASSIUM SERUM 4.9 mEq/L (3.5-5.1)
[2017-11-09 20:32] LABS: CREATININE - SERUM 6.5 mg/dL (0.6-1.2)
[2017-11-09 20:41] LABS: HEMATOCRIT 31.9 % (41.0-60); HEMOGLOBIN 10.8 gm/dL (12-16); RED BLOOD COUNT 3.44 Mil/cmm (3.80-5.10); WHITE BLOOD COUNT 8.9 Th/cmm (4.8-10.8)
[2017-11-09 20:42] LABS: MEAN CELL VOLUME 92.7 fl (81-100); MEAN CORPUSCULAR HEMOGLOBIN 31.5 pg (27.0-31.0); MEAN CORPUSCULAR HGB CONC 33.9 pg (28.0-36.0); MEAN PLATELET VOLUME 7.2 fl; PLATELET COUNT 445 Th/cmm (150-400); RED CELL DISTRIBUTION WIDTH 15.8 % (11.5-20.0)
[2017-11-09 20:43] LABS: % BASOPHILS 0.5 % (0.0-2.0); % EOSINOPHILS 0.5 % (0.0-5.0); % LYMPHOCYTES 21.7 % (20.0-50.0); % NEUTROPHILS 71.3 % (40.0-80.0); LYMPHOCYTE ABSOLUTE 1.9 Th/cmm (1.5-3.0); MONOCYTE ABSOLUTE 0.5 Th/cmm (0.3-1.0); NEUTROPHILE ABSOLUTE 6.5 Th/cmm (1.8-8.0)
== END 2017-11-09 21:00 | disposition home or self-care (01) ==
LOC: ER 19:10
DX: R11.10 Vomiting, unspecified (principal); L53.9 Erythematous condition, unspecified; T37.8X5A Adverse effect of other specified systemic anti-infectives and antiparasitics, initial encounter; N19 Unspecified kidney failure; Z99.2 Dependence on renal dialysis; Y92.89 Other specified places as the place of occurrence of the external cause
CPT/HCPCS: 36415-UA; 80048-TC; 85025-TC; Z7502